=== PATIENT | female | born 2005 | race Caucasian/White ===

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

== ENCOUNTER 2024-10-29 01:02 | Outpatient (CLI) | payer BC, SELFPAY ==
[2024-10-29 07:58] LABS: HCT 40.6 % (36.0-46.0); HGB 13.3 g/dL (11.2-15.7)
[2024-10-29 08:43] LABS: ALT 36 U/L (14-59); AST 16 U/L (15-37); Albumin 4.3 g/dL (3.4-5.0); Alkaline Phosphatase 83 U/L (46-116); Anion Gap 13.2 mmol/L (3-11); BUN 14 mg/dL (7-18); Bilirubin, Total 0.5 mg/dL (0.2-1.0); CO2 22.8 mmol/L (21.0-32.0); Calcium 9.3 mg/dL (8.5-10.1); Calculated LDL 74 mg/dL (<100); Chloride 107 mmol/L (98-107); Cholesterol 129 mg/dL (<200); Estimated GFR 93.86 (mL/min/1.73m2); Glucose 88 mg/dL (74-106); HDL Cholesterol 49 mg/dL (>or=50); Potassium 4.4 mmol/L (3.5-5.1); Sodium 143 mmol/L (136-145); Total Protein 7.5 g/dL (6.4-8.2); Triglyceride 34 mg/dL (<150)
== END 2024-10-29 01:03 | disposition home or self-care (01) ==
PROVIDERS: PCP Internal Medicine; Visit Provider Physician Assistant
DX: F64.9 Gender identity disorder, unspecified (principal)
CPT/HCPCS: 36415; 80053; 80061; 85014; 85018

== ENCOUNTER 2025-03-11 14:56 | Outpatient (CLI) | payer BC, SELFPAY ==
[2025-03-11 15:46] LABS: HCT 40.9 % (36.0-46.0); HGB 13.5 g/dL (11.2-15.7)
[2025-03-11 16:43] LABS: ALT 28 U/L (10-49); AST 21 U/L (<34); Albumin 4.9 g/dL (3.2-5.0); Alkaline Phosphatase 83 U/L (46-116); Anion Gap 11 mmol/L (3-11); BUN 12 mg/dL (9-23); Bilirubin, Total 0.40 mg/dL (0.2-1.2); CO2 24.0 mmol/L (20.0-31.0); Calcium 9.7 mg/dL (8.3-10.6); Chloride 110 mmol/L (98-107); Cholesterol 150 mg/dL (<200); Glucose 83 mg/dL (74-106); HDL Cholesterol 61 mg/dL (>40); Potassium 4.3 mmol/L (3.5-5.1); Sodium 145 mmol/L (136-145); Total Protein 7.0 g/dL (5.7-8.2)
== END 2025-03-11 14:57 | disposition home or self-care (01) ==
LOC: LBO 03-15 14:56
PROVIDERS: PCP Internal Medicine; Visit Provider Physician Assistant
DX: F64.9 Gender identity disorder, unspecified (principal)
CPT/HCPCS: 36415; 80053; 80061; 84403; 85014; 85018

== ENCOUNTER 2025-04-12 10:02 | Outpatient (CLI) | payer BC, SELFPAY | END 2025-04-12 10:03 | disposition home or self-care (01) | LOC: LBO 10:02 | PROVIDERS: PCP Internal Medicine; Visit Provider Internal Medicine | DX: Z83.49 Family history of other endocrine, nutritional and metabolic diseases (principal) | CPT/HCPCS: 36415; 82103; 82104 ==